=== PATIENT | female | born 1955 | race Caucasian/White ===

== ENCOUNTER 2019-09-22 01:17 | Outpatient (CLI) | payer SELFPAY ==
[~2019-09-22 01:17] MED LIST: CYAN100019 PO
[2019-09-22 10:51] LABS: HEMOGLOBIN A1C 5.2 % (4.5-6.2)
[2019-09-22 12:12] LABS: CHOL/HDL RATIO 1.98 (0.00-4.99)
== END 2019-09-22 23:59 | disposition home or self-care (01) ==
LOC: HW HEART 01:17
DX: Z13.6 Encounter for screening for cardiovascular disorders (principal)
CPT/HCPCS: 36415